=== PATIENT | female | born 2000 | race American Indian/Alaskan Native ===

== ENCOUNTER 2021-01-15 13:57 | Emergency (ER) | payer BC ==
[2021-01-15 14:01] VITALS: BP 131/89
--- NOTE | 2021-01-15 14:51 | Emergency Department Report ---
ED General Adult HPI - General Chief complaint: Extremity Injury, Upper Stated complaint: RT ARM PAINS Time Seen by Provider: 01/15/21 14:49 Source: patient Mode of arrival: Ambulatory Limitations: No Limitations - History of Present Illness Initial comments: 20-year-old [id number] female patient presents to the emergency department complaints of right arm pain starting yesterday. Patient states she was lying down sleeping and when she woke up, her right arm was painful. There was no preceding fall, trauma, or injury. Patient has no history of prior injuries to the right upper extremity. Pain is localized to the area of the distal humerus, worse with movement. No medications prior to arrival. No venous thromboembolism risk factors identified on history. Denies headache, neck pain, shoulder pain, elbow pain, hand pain, wrist pain, paresthesias, skin color changes. Denies other complaints at this time. - Related Data Previous Rx's Medication Instructions Recorded Last Taken Type Naproxen 500 mg PO BID #20 tablet 01/15/21 Unknown Rx Allergies Allergy/AdvReac Type Severity Reaction Status Date / Time No Known Allergies Allergy Unverified 01/15/21 13:59 ED Review of Systems ROS: Stated complaint: RT ARM PAINS Other details as noted in HPI Other: GENERAL: Negative for fever. CARDIOVASCULAR: Negative for chest pain. PULMONARY: Negative for shortness of breath. GASTROINTESTINAL: Negative for abdominal pain. MUSCULOSKELETAL: Positive for arm pain. NEUROLOGICAL: Negative for headache. INTEGUMENTARY: Negative for rash. ED Past Medical Hx - Past Medical History Previous Medical History?: No - Surgical History Past Surgical History?: No - Social History Smoking Status: Current Every Day Smoker Substance Use Type: Alcohol, Marijuana - Medications Home Medications: Home Medications Medication Instructions Recorded Confirmed Last Taken Type Naproxen 500 mg PO BID #20 tablet 01/15/21 Unknown Rx ED Physical Exam - General Limitations: No Limitations - Other Other exam information: General: Awake, appropriately interactive. Tearful. Neck: Supple. Full range of motion intact. Cardiovascular: Normal peripheral perfusion. Pulmonary: No respiratory distress. Patient is speaking normally without use of accessory muscles. Skin: No apparent rashes or lesions. Neurological: No facial asymmetry. Speech is clear. Follows commands. Patient is alert and oriented. Musculoskeletal: Tenderness to palpation throughout the proximal left upper extremity without obvious deformity or dislocation. No overlying warmth or ecchymosis. Left upper extremity is held in a flexed and internally rotated position. There is no tenderness of the neck, shoulder, or elbow. Equal circumference as compared with the proximal right upper extremity. Strong radial pulse. Brisk capillary refill. Psych: Cooperative. Appropriate mood and affect. ED Course Vital Signs 01/15/21 14:00 Temperature 98.1 F Pulse Rate 86 Respiratory 18 Rate Blood Pressure 131/89 O2 Sat by Pulse 100 Oximetry ED Medical Decision Making - Medical Decision Making Differential diagnosis including but not limited to: strain, sprain, biceps tendon rupture, occult malignancy Patient presents emergency department complaints of nontraumatic left upper extremity pain. She is afebrile, hemodynamically stable, neurovascularly intact. She is tearful and reluctant to move the left upper extremity. X-rays without acute process. Patient has no risk factors for venous thromboembolism. Etiology of patient's symptoms remains unclear however there is no clinical indication for further diagnostic work-up on an emergent basis at this time. Patient will be discharged home with appropriate analgesics, left shoulder sling for comfort, and referred to orthopedics for close outpatient follow-up. Patient expressed understanding and is agreeable to plan of care. Strict return precautions provided. Repeat exam is unremarkable and benign. History, exam, diagnostic testing, and current condition do not suggest worrisome pathology to warrant further testing, continued ED treatment, admission, or surgical evaluation at this point. Given the low probability of a significant medical illness, it would be more likely to result in harm than benefit to perform further testing at this stage. Discussed findings, presumptive diagnosis, need for follow-up and specific signs/symptoms that should prompt immediate return to the emergency department. Instructions were explained in detail to the patient in addition to giving written discharge information. Patient expressed understanding and was given the opportunity to ask questions, all of which were satisfactorily answered prior to discharge home. Critical care attestation.: If time is entered above; I have spent that time in minutes in the direct care of this critically ill patient, excluding procedure time. ED Disposition Clinical Impression: Right arm pain Disposition: DC-01 TO HOME OR SELFCARE Is pt being admited?: No Does the pt Need Aspirin: No Condition: Stable Instructions: Muscle Strain Additional Instructions: Take Tylenol every 4 hours as needed for pain. Take Naprosyn twice daily with food as needed for pain. Wear sling as needed. Apply heat to affected area as needed. Follow-up with primary care provider and/or orthopedics next week. Call Sunday to schedule an appointment. See referral information below. Return to the emergency department immediately for new or worsening symptoms. Specifically, return to the emergency department immediately for chest pain, shortness of breath, increased pain, redness/swelling, numbness, or any other concerns Prescriptions: Naproxen 500 mg PO BID #20 tablet Referrals: MAGGIE ALVARADO MD [Staff Physician] - 3-5 Days TOOTIE MEYER MD [Staff Physician] - 3-5 Days [facility] [Outside] - 3-5 Days [facility] [Outside] - 3-[address] [facility] [place] [Outside] - 3-5 Days Time of Disposition: 15:28
--- NOTE | 2021-01-15 15:20 | XRay Report ---
RIGHT HUMERUS 2 VIEWS INDICATION: pain along distal humerus; no trauma. COMPARISON: No relevant prior imaging study available. FINDINGS: No significant skeletal abnormality. No soft tissue swelling or calcifications. No foreign bodies. IMPRESSION: 1. No acute findings. Signer Name: Deonte Harrison MD Signed: 01/15/2021 3:16 PM Workstation Name: [id number]
== END 2021-01-15 16:28 | disposition home or self-care (01) ==
LOC: ED 13:57
DX: M79.601 Pain in right arm (principal); F17.200 Nicotine dependence, unspecified, uncomplicated; F12.10 Cannabis abuse, uncomplicated; Z79.899 Other long term (current) drug therapy
CPT/HCPCS: 99283